=== PATIENT | male | born 1990 | race African-American/Black ===

== ENCOUNTER 2021-01-03 15:15 | Emergency (ER) | payer OTHER ==
[2021-01-03 15:23] VITALS: BP 144/91; PULSE 88; TEMP 98.4
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
[2021-01-03 17:23] VITALS: RESP 20
--- NOTE | 2021-01-03 18:02 | XR ---
EXAMINATION TYPE: XR hand complete bilateral DATE OF EXAM: 01/03/2021 COMPARISON: NONE HISTORY: Pain TECHNIQUE: 3 views each hand FINDINGS: Metacarpals are intact. I see no fracture nor dislocation. Joint spaces are normal. There a re no erosions. IMPRESSION: Negative exam. No fracture seen.
--- NOTE | 2021-01-03 18:06 | XR ---
EXAMINATION TYPE: XR knee complete LT DATE OF EXAM: 01/03/2021 COMPARISON: NONE HISTORY: Knee pain TECHNIQUE: 3 views FINDINGS: I see no fracture nor dislocation. Joint spaces are normal. There is bipartite patella whic h is normal variation. There is no evidence of joint effusion. IMPRESSION: Negative left knee exam.
== END 2021-01-03 18:30 | disposition home or self-care (01) ==
LOC: EC 15:15
DX: S16.1XXA Strain of muscle, fascia and tendon at neck level, initial encounter (principal); S80.02XA Contusion of left knee, initial encounter; S06.0X9A Concussion with loss of consciousness of unspecified duration, initial encounter; X58.XXXA Exposure to other specified factors, initial encounter; M47.812 Spondylosis without myelopathy or radiculopathy, cervical region; F12.90 Cannabis use, unspecified, uncomplicated; V99.XXXA Unspecified transport accident, initial encounter; Y92.410 Unspecified street and highway as the place of occurrence of the external cause
CPT/HCPCS: 70450; 72125; 99284